=== PATIENT | female | born 1965 | race Two or more races ===

== ENCOUNTER 2022-08-30 07:21 | Emergency (ER) | payer OTHER ==
[~2022-08-30] VITALS: Ht 157.5 cm; Wt 72.6 kg
[2022-08-30] MEDS ORDERED: TREXALL10 MG PO (07:35)
[2022-08-30] MEDS ORDERED: MILLIPRED5 MG PO (07:35)
[2022-08-30] MEDS ORDERED: KETO10TA2 PO (11:54)
[2022-08-30] MEDS ORDERED: AMOX-CLAV 875-1 EACH PO (11:54)
== END 2022-08-30 12:00 | disposition home or self-care (01) ==
LOC: ER 07:21
DX: M79.672 Pain in left foot (principal); M19.90 Unspecified osteoarthritis, unspecified site

== ENCOUNTER 2024-12-09 11:47 | Emergency (ER) | payer OTHER ==
[~2024-12-09] VITALS: Ht 154.9 cm; Wt 72.6 kg
[~2024-12-09 11:47] MED LIST: AMOX-CLAV 875-1 EACH PO; KETO10TA2 PO; MILLIPRED5 MG PO; TREXALL10 MG PO
[2024-12-09 14:58] LABS: HEMOGLOBIN 13.5 g/dL (12.0-15.00); MEAN CELL VOLUME 92.8 fL (80.00-100.00); MEAN CORPUSCULAR HEMOGLOBIN 31.4 pg (27.00-32.0); MEAN CORPUSCULAR HGB CONC 33.8 g/dl (32.0-36.0); PLATELET COUNT 308 K/uL (150-450); RED BLOOD COUNT 4.31 M/uL (4.00-6.00); RED CELL DISTRIBUTION WIDTH 13.4 % (11.5-14.5)
== END 2024-12-09 16:25 | disposition home or self-care (01) ==
LOC: ER 11:48
PROVIDERS: General Practice
DX: J11.1 Influenza due to unidentified influenza virus with other respiratory manifestations (principal); R50.9 Fever, unspecified; R05.9 Cough, unspecified; Z20.822 Contact with and (suspected) exposure to COVID-19